=== PATIENT | male | born 1945 | race Two or more races ===

== ENCOUNTER 2018-04-11 10:30 | Inpatient (IN) | payer OTHER ==
[~2018-04-11] VITALS: Ht 167.6 cm; Wt 80.7 kg
[2018-04-11] MEDS ORDERED: PLAVIX75 MG PO (13:23)
[2018-04-11] MEDS ORDERED: ASPIR 8181 MG PO (13:24)
[2018-04-11] MEDS ORDERED: LOSARTAN-HCTZ1 EAC1 PO (13:24)
[2018-04-11] MEDS ORDERED: INDERAL PO (13:25)
[2018-04-11] MEDS ORDERED: ATORVASTATIN CA20 MG PO (13:25)
[2018-04-11] MEDS ORDERED: UROXATRAL10 MG PO (13:25)
[2018-04-11] MEDS ORDERED: MOBIC7.5 M1 PO (13:26)
[2018-04-11] MEDS ORDERED: TRAMADOL HCL50 MG PO (13:26)
[2018-04-21] MEDS ORDERED: XARELTO10 MG PO (08:41)
[2018-04-21] MEDS ORDERED: INTEGRA PLUS C1 EACH PO (08:41)
[2018-04-21] MEDS ORDERED: BACTRIM DS TAB1 EACH PO (08:41)
[2018-04-21] MEDS ORDERED: OXYC1TAB9 PO (08:41)
== END 2018-04-21 17:13 | DRG 470 ==
LOC: SURH 04-18 05:35 → O/R 04-18 05:35 → RECOVERY 04-18 10:30 → SURH 04-18 11:17
PROVIDERS: Orthopaedic Surgery Sports Medicine
PROC: 0SR902Z Replacement of Right Hip Joint with Metal on Polyethylene Synthetic Substitute, Open Approach (ICD-10-PCS; principal; 2018-04-18 11:00)
DX: M16.11 Unilateral primary osteoarthritis, right hip (principal); I11.9 Hypertensive heart disease without heart failure; I25.10 Atherosclerotic heart disease of native coronary artery without angina pectoris